=== PATIENT | female | born 2000 ===

== ENCOUNTER 2020-04-18 20:16 | Emergency (ER) | payer OTHER ==
[~2020-04-18] VITALS: Ht 160 cm; Wt 58.1 kg
[2020-04-18] MEDS ORDERED: ESCI10 PO (22:19)
== END 2020-04-18 23:08 | disposition home or self-care (01) ==
LOC: ER 20:16
DX: L50.0 Allergic urticaria (principal); Z79.899 Other long term (current) drug therapy
CPT/HCPCS: 99283; J1100; Q0163